=== PATIENT | female | born 1960 | race Caucasian/White ===

== ENCOUNTER → 2020-10-19 | Day surgery (SDC) | payer OTHER ==
[~2020-10-19] VITALS: Ht 172.7 cm; Wt 59.9 kg
[~2020-10-19] MED LIST: CATAPRES0.1 MG PO; COLESTID1 GM PO; DITROPAN5 MG PO; ONDANSETRON ODT8 MG PO; OS-CAL500 MG PO; PRILOSEC20 MG PO; TOPAMAX50 MG PO; TYLENOL #3 6-P1 EACH PO; TYLENOL #31 EACH PO; VITAMIN D5000 UNI1 PO; VOLTAREN **OUT50 MG PO
[2020-10-19 07:49] LABS: HCT 38.2 % (37.0-47.0); HGB 11.9 g/dl (12.5-16.0); MCH 30.1 pg (25.0-31.0); MCHC 31.2 g/dL (32.0-36.0); MCV 96.5 fL (78.0-100.0); MPV 8.8 fL (6.0-9.5); RBC 3.96 M/uL (4.20-5.40); RDW 12.8 % (11.5-14.0); WBC 8.1 K/uL (4.0-10.5)
[2020-10-19 08:10] LABS: BILIRUBIN - TOTAL 0.2 mg/dL (0.2-1.0); BUN/CREAT RATIO (CALC) 29.9 RATIO; CREATININE 0.77 mg/dL (0.51-0.95); GLOBULIN (CALCULATION) 3.3 g/dL; POTASSIUM 4.4 mmol/L (3.5-5.1); TOTAL PROTEIN 7.3 g/dL (6.4-8.2)
== END | disposition home or self-care (01) ==
LOC: FAS 07:00
PROVIDERS: Surgery
DX: I87.2 Venous insufficiency (chronic) (peripheral) (principal); G43.909 Migraine, unspecified, not intractable, without status migrainosus; M81.0 Age-related osteoporosis without current pathological fracture; Z90.49 Acquired absence of other specified parts of digestive tract; E55.9 Vitamin D deficiency, unspecified; D53.9 Nutritional anemia, unspecified
CPT/HCPCS: 36415; 80053; J1100; J1885; J2250; J2405; J2704; J3010; J7120